=== PATIENT | female | born 1955 | race Caucasian/White ===

== ENCOUNTER 2016-08-16 21:23 | Emergency (ER) | payer SELFPAY ==
--- NOTE | 2016-08-16 21:31 | ED.PDOC ---
History of Present Illness - General Chief Complaint: Laceration Stated Complaint: laceration left hand Time Seen by Provider: 08/16/16 21:25 Source: patient Exam Limitations: no limitations - History of Present Illness Initial Comments: Rachana Fuchs 61 y/o female stated she accidentally injured left hand with her new paring knife at home. Occurred: just prior to arrival Pain - Upper Extremity: mild: Hand, left Method of Injury: incised Improving Factors: nothing Worsening Factors: movement Allergies/Adverse Reactions: Allergies Azithromycin [From Zithromax Z-Matias] Allergy (Unverified 02/24/13 11:40) Home Medications: Ambulatory Orders Lisinopril & Hydrochlorothiazi [Lisinopril/Hydrochlorothi] 1 tab PO DAILY Potassium Chloride [Potassium Chloride ER] 10 meq PO DAILY 02/24/13 Review of Systems - Review of Systems Constitutional: States: no symptoms reported EENTM: States: no symptoms reported Respiratory: States: no symptoms reported Cardiology: States: no symptoms reported Gastrointestinal/Abdominal: States: no symptoms reported Genitourinary: States: no symptoms reported Musculoskeletal: States: no symptoms reported Skin: States: see HPI Neurological: States: no symptoms reported Endocrine: States: no symptoms reported Hematologic/Lymphatic: States: no symptoms reported Past Medical History (General) - Patient Medical History Hx Congestive Heart Failure: No Hx Hypertension: Yes Hx Diabetes: No Surgical History: other - hysterectomy,ankle (orif) right - Social History Hx Tobacco Use: No Hx Alcohol Use: No Hx Substance Use: No Hx Depression: No Feels Threatened In Home Enviroment: No Feels Threatened In a Relationship: No Hx Physical Abuse: No Hx Emotional Abuse: No Hx Suspected Abuse: No - Activities of Daily Living Patient Lives Alone: No - family Family Medical History - Family History Grandparents Family History: Unknown Physical Exam - Physical Exam General Appearance: Alert, Anxious, No apparent distress Eyes, Ears, Nose, Throat Exam: PERRL/EOMI, normal ENT inspection, pharynx normal Neck: non-tender, full range of motion, supple Cardiovascular/Respiratory: regular rate, rhythm, no M/R/G, normal peripheral pulses Abdominal Exam: non-tender, no organomegaly Back Exam: normal inspection, no CVA tenderness Shoulder Exam: normal inspection, no evidence of injury Elbow/Forearm Exam: normal inspection, no evidence of injury Wrist Exam: normal inspection, no evidence of injury Hand Exam: laceration - 2 cm skin thenar area left thumb Neuro/Tendon: normal sensation, normal motor functions, normal tendon functions Mental Status: alert, oriented x 3 Skin Exam: normal color Progress - Results/Orders Results/Orders: Vital Signs - 8 hr 08/16/16 21:57 Temperature 98.1 F Pulse Rate [R 98 H Arm] Respiratory 16 Rate Blood Pressure 145/91 [Right Arm] O2 Sat by Pulse 97 Oximetry Procedures - Laceration/Wound Repair Left Hand Wound Length (cm): 2 Wound's Depth, Shape: superficial, irregular, flap Wound Explored: no foreign body removed Irrigated w/ Saline (cc's): 20 Betadine Prep?: No - hibiclens Anesthesia: 1% Lidocaine Volume Anesthetic (cc's): 5 Wound Repaired With: sutures Suture Size/Type: 5:0, nylon Number of Sutures: 2 Departure - Departure Clinical Impression: Laceration of left hand without complication, excluding fingers Qualifiers: Encounter type: initial encounter Qualified Code(s): S61.412A - Laceration without foreign body of left hand, initial encounter Time of Disposition: 22:22 Disposition: Discharge to Home or Self Care Condition: Good Instructions: DI for Laceration Repair Referrals: Alton Ocampo III, MD [Primary Care Provider] - 1-2 Weeks Home Medications: Ambulatory Orders Lisinopril & Hydrochlorothiazi [Lisinopril/Hydrochlorothi] 1 tab PO DAILY Potassium Chloride [Potassium Chloride ER] 10 meq PO DAILY 02/24/13 Additional Instructions: REMOVAL OF SUTURES 08/27/2016-[facility] ER
[2016-08-16] MEDS ORDERED: LIDOCAINE 1% 10 ML VIAL INJ ONE (21:41)
[2016-08-16] MEDS ORDERED: CHLORHEXIDINE GLUCONATE 4 % 15 ML UD TOP ONE (21:42)
[2016-08-16] MEDS ORDERED: NEOMYCIN-BACITRACIN-POLYMYXIN 0.9 GM UD TOP ONE (21:58)
[2016-08-16 22:06] VITALS: BP 145/91; TEMP 98.1; O2SAT 97
[2016-08-16] MEDS ORDERED: TETANUS,DIPHTHERIA,PERTUSSIS 1 EA SYG IM ONE (22:19)
[2016-08-16] MEDS ORDERED: HYDROCOD/APAP 5/325 (ER DISP) #3 TAB PO ONE (22:20)
== END 2016-08-16 22:45 | disposition home or self-care (01) ==
LOC: ER 21:23
DX: S61.412A Laceration without foreign body of left hand, initial encounter (principal); I10 Essential (primary) hypertension; Z23 Encounter for immunization; W26.0XXA Contact with knife, initial encounter; Y92.009 Unspecified place in unspecified non-institutional (private) residence as the place of occurrence of the external cause; Z79.899 Other long term (current) drug therapy

== ENCOUNTER 2018-02-25 17:57 | Emergency (ER) | payer SELFPAY ==
[2018-02-25] MEDS ORDERED: ONDANSETRON INJ 4 MG/2 ML VIAL IV ONE (18:36)
[2018-02-25] MEDS ORDERED: SODIUM CHLORIDE 0.9% 1000ML 1,000 ML IVS ONE ×2 (19:23→20:37)
[2018-02-25] MEDS ORDERED: KCL 20MEQ/WATER FOR INJ 100ML 20 MEQ in PREMIX BAG 1 BAG IVPB ONE (19:29)
[2018-02-25] MEDS ORDERED: KCL 20MEQ/WATER FOR INJ 100ML 100 ML IVPB ONE (19:31)
--- NOTE | 2018-02-25 19:34 | ED.PDOC ---
History of Present Illness - General Chief Complaint: GI Problem Stated Complaint: n/v/d Time Seen by Provider: 02/25/18 18:35 Source: patient Exam Limitations: no limitations - History of Present Illness Initial Comments: Patient presents with N/V/D since 7:30 this morning. The diarrhea is non- bloody. She denies abominal pain. No recent travel. Her just recovered from similar symptoms. S/P appendectomy/hysterectomy. No other complaints. Timing/Duration: other - 12 hours Severity: moderate Improving Factors: nothing, eating Associated Symptoms: other - as in HPI Allergies/Adverse Reactions: Allergies Azithromycin [From Zithromax Z-Matias] Allergy (Unverified 02/24/13 11:40) Home Medications: Ambulatory Orders Lisinopril & Hydrochlorothiazi [Lisinopril/Hydrochlorothi] 1 tab PO DAILY 02/24/13 Potassium Chloride [Potassium Chloride ER] 10 meq PO DAILY 02/24/13 Diphenoxylate/Atropine [Lomotil Tab] 2.5 mg PO Q6H PRN 02/25/18 Omeprazole Magnesium [Prilosec Otc] 20 mg PO DAILY 02/25/18 Ondansetron [Zofran Odt] 4 mg PO Q4HR PRN #10 tab 02/25/18 Promethazine HCl 25 mg PO Q6H PRN 02/25/18 Review of Systems - Review of Systems Constitutional: States: no symptoms reported EENTM: States: no symptoms reported Respiratory: States: no symptoms reported Cardiology: States: no symptoms reported Gastrointestinal/Abdominal: States: see HPI Genitourinary: States: no symptoms reported Musculoskeletal: States: no symptoms reported Skin: States: no symptoms reported Neurological: States: no symptoms reported Endocrine: States: no symptoms reported Hematologic/Lymphatic: States: no symptoms reported Past Medical History (General) - Patient Medical History Hx Congestive Heart Failure: No Hx Hypertension: Yes Hx Diabetes: No Hx Gastroesophageal Reflux: Yes Hx Cancer: No Hx Hepatitis C: No Surgical History: Hysterectomy, other - Vaccination History Hx Tetanus, Diphtheria Vaccination: No Hx Influenza Vaccination: No Hx Pneumococcal Vaccination: No - Social History Hx Tobacco Use: No Hx Chewing Tobacco Use: No Hx Alcohol Use: No Hx Substance Use: No Hx Substance Use Treatment: No Hx Depression: No Hx Physical Abuse: No Hx Emotional Abuse: No Hx Suspected Abuse: No - Female History Patient : No Family Medical History - Family History Grandparents Family History: Unknown Physical Exam - Physical Exam General Appearance: Alert Eye Exam: bilateral normal Ears, Nose, Throat: hearing grossly normal, normal ENT inspection Neck: non-tender, full range of motion, supple Respiratory: lungs clear, normal breath sounds Cardiovascular/Chest: normal peripheral pulses, regular rate, rhythm, no edema Gastrointestinal/Abdominal: normal bowel sounds, non tender, soft Back Exam: normal inspection, no CVA tenderness Extremity: normal range of motion, non-tender, normal inspection Neurologic: no motor/sensory deficits, alert, normal mood/affect, oriented x 3 Skin Exam: normal color Lymphatic: no adenopathy Progress - Progress Progress: 02/25/18 22:30 Laboratory Tests 02/25/18 02/25/18 02/25/18 18:46 18:46 18:46 WBC 13.2 H RBC 5.48 H Hgb 16.5 H Hct 49.1 H MCV 89.6 MCH 30.1 MCHC 33.6 RDW 13.4 Plt Count 340 MPV 9.5 Absolute Neuts (auto) 12.30 H Absolute Lymphs (auto) 0.50 L Absolute Monos (auto) 0.30 Absolute Eos (auto) 0.00 Absolute Basos (auto) 0.00 Neutrophils % 93.4 H Lymphocytes % 3.7 L Monocytes % 2.6 Eosinophils % 0.0 L Basophils % 0.3 Sodium 140 Potassium 3.0 L Chloride 102 Carbon Dioxide 24 Anion Gap 17.0 BUN 18 Creatinine 0.87 BUN/Creatinine Ratio 20.7 H Random Glucose 133 H Serum Osmolality 283.2 Calcium 9.9 Total Bilirubin 1.3 H AST 25 ALT 27 Alkaline Phosphatase 116 Serum Total Protein 9.2 H Albumin 4.8 Globulin 4.4 H Albumin/Globulin Ratio 1.1 Lipase 28 Urine Color Urine Appearance Urine pH Ur Specific Reading Urine Protein Urine Glucose (UA) Urine Ketones Urine Blood Urine Nitrite Urine Bilirubin Urine Urobilinogen Ur Leukocyte Esterase Urine RBC Urine WBC Ur Epithelial Cells Urine Bacteria Urine Yeast 02/25/18 21:24 WBC RBC Hgb Hct MCV MCH MCHC RDW Plt Count MPV Absolute Neuts (auto) Absolute Lymphs (auto) Absolute Monos (auto) Absolute Eos (auto) Absolute Basos (auto) Neutrophils % Lymphocytes % Monocytes % Eosinophils % Basophils % Sodium Potassium Chloride Carbon Dioxide Anion Gap BUN Creatinine BUN/Creatinine Ratio Random Glucose Serum Osmolality Calcium Total Bilirubin AST ALT Alkaline Phosphatase Serum Total Protein Albumin Globulin Albumin/Globulin Ratio Lipase Urine Color Yellow Urine Appearance Cloudy Urine pH 5.5 Ur Specific Reading >= 1.030 Urine Protein 30 Urine Glucose (UA) Negative Urine Ketones 40 H Urine Blood Moderate H Urine Nitrite Negative Urine Bilirubin Small H Urine Urobilinogen 0.2 Ur Leukocyte Esterase Negative Urine RBC 1-3 Urine WBC 10-20 H Ur Epithelial Cells 3-5 Urine Bacteria 2+ H Urine Yeast 1+ H Patient is dehydrated from acute gastroenteritis. She received Zofran 4 mg IV x one with good improvement of her nausea. She received NS one liter IV bolus x two and potassium chloride 20 meq IV x one. She was discharge with RX for Zofran. Care instructions given. E.R. warnings given. Questions were elicited and answered. The patient voiced understanding and agreement with the plan. Departure - Departure Clinical Impression: Gastroenteritis Disposition: Discharge to Home or Self Care Condition: Good Departure Forms: ED Discharge - Pt. Copy, Patient Portal Self Enrollment Instructions: DI for Diarrhea and Traveler's Diarrhea -- Adult, Viral Gastroenteritis, Adult (DC) Diet: other - increase oral fluids Activity: increase activity as tolerated Referrals: Alton Ocampo III, MD [Primary Care Provider] - 1-2 Weeks Prescriptions: Ondansetron [Zofran Odt] 4 mg PO Q4HR PRN #10 tab PRN Reason: Nausea Home Medications: Ambulatory Orders Lisinopril & Hydrochlorothiazi [Lisinopril/Hydrochlorothi] 1 tab PO DAILY 02/24/13 Potassium Chloride [Potassium Chloride ER] 10 meq PO DAILY 02/24/13 Diphenoxylate/Atropine [Lomotil Tab] 2.5 mg PO Q6H PRN 02/25/18 Omeprazole Magnesium [Prilosec Otc] 20 mg PO DAILY 02/25/18 Ondansetron [Zofran Odt] 4 mg PO Q4HR PRN #10 tab 02/25/18 Promethazine HCl 25 mg PO Q6H PRN 02/25/18 Additional Instructions: Increase oral fluids. Take prescription as directed for nausea. You may try Immodium A-D if diarrhea hasn't resolved in the next 24 hours. Return to the E.R. for temperature above 100.4 or if symptoms do not resolve in 48 hours.
[2018-02-25] MEDS ORDERED: ONDANSETRON ODT (ER DISP) 8 MG TAB PO ONE (22:32)
[2018-02-25 23:01] VITALS: BP 128/72; TEMP 100; O2SAT 94
== END 2018-02-25 23:00 | disposition home or self-care (01) ==
LOC: ER 17:57
DX: K52.9 Noninfective gastroenteritis and colitis, unspecified (principal); K21.9 Gastro-esophageal reflux disease without esophagitis; I10 Essential (primary) hypertension; Z88.1 Allergy status to other antibiotic agents; Z79.899 Other long term (current) drug therapy
CPT/HCPCS: 36415; 80053; 81001; 83690; 85025; 87086; J2405; J3480; J7030

== ENCOUNTER → 2018-07-06 | Outpatient (CLI) | payer MEDICARE | LOC: GMAL 10:38 | PROVIDERS: ATTEND Family Medicine | DX: D51.3 Other dietary vitamin B12 deficiency anemia (principal); R53.81 Other malaise; E55.9 Vitamin D deficiency, unspecified; I10 Essential (primary) hypertension; Z79.899 Other long term (current) drug therapy ==

== ENCOUNTER → 2018-10-06 | Outpatient (CLI) | payer MEDICARE | LOC: LAB.O 14:25 | PROVIDERS: ATTEND Nurse Practitioner Family | DX: R19.7 Diarrhea, unspecified (principal) ==

== ENCOUNTER 2018-10-23 10:20 | Emergency (ER) | payer MEDICARE ==
[2018-10-23 12:41] VITALS: BP 141/86; TEMP 97.9; O2SAT 97
== END 2018-10-23 12:35 | disposition home or self-care (01) ==
LOC: ER 10:20
DX: R19.7 Diarrhea, unspecified (principal); R11.2 Nausea with vomiting, unspecified; R10.9 Unspecified abdominal pain; I10 Essential (primary) hypertension; K21.9 Gastro-esophageal reflux disease without esophagitis; Z79.899 Other long term (current) drug therapy; Z88.1 Allergy status to other antibiotic agents
CPT/HCPCS: 36415; 80048; 80076; 82550; 82553; 84484; 85025; 85610; 85730; J0780; J2270; J7030

== ENCOUNTER 2019-05-18 19:21 | Emergency (ER) | payer MEDICARE ==
--- NOTE | 2019-05-18 20:21 | RAD ---
3 VIEWS LEFT HAND RADIOGRAPHIC SERIES. INDICATIONS: Pain. Foreign body. COMPARISONS: No comparisons are available. FINDINGS: Linear metallic foreign body tip is just medial to the left fifth metacarpal phalangeal joint without underlying fracture or dislocation. Mild osteoarthritis in the first left carpometacarpal joint. The distal left radius and ulna are intact. No carpal bone osteonecrosis. IMPRESSION: Linear metallic foreign body is lodged in medial left hand soft tissue just adjacent to the left fifth metacarpal phalangeal joint. Underlying bones appear normal. Electronically signed by: Sukh Ramos MD 05/18/2019 8:20 PM CDT
[2019-05-18] MEDS ORDERED: CLINDAMYCIN IV 600MG 600 MG in PREMIX BAG 1 BAG IVPB ONE (20:35)
[2019-05-18] MEDS ORDERED: ONDANSETRON INJ 4 MG/2 ML VIAL IV ONE (20:36)
[2019-05-18] MEDS ORDERED: fentaNYL CITRATE INJ 50 MCG/ML 2 ML AMP IV ONE (20:36)
[2019-05-18] MEDS ORDERED: CLINDAMYCIN IV 600MG 50 ML IVPB ONE (20:38)
--- NOTE | 2019-05-18 21:21 | ED.PDOC ---
History of Present Illness - General Chief Complaint: Skin/Abrasion/Tear Stated Complaint: wire in left hand Time Seen by Provider: 05/18/19 19:36 Source: patient, RN notes reviewed, Vital Signs reviewed, family - Exam Limitations: no limitations - History of Present Illness Initial Comments: Patient is a 63-year-old white female who was at home when her started up the mower and a piece of baling wire was picked up and thrown by the mower and hit her in her left hand. This occurred just prior to arrival. Patient complains of left hand pain. It is stinging/throbbing in nature. It is of moderate intensity. There is no radiation. She denies any dizziness, headache, blurry vision, chest pain, shortness of breath, nausea, vomiting, diarrhea, paresthesias. Patient's only complaint is her left hand pain and difficulty moving her fingers due to the pain. Occurred: just prior to arrival Severity: moderate Pain Location: upper extremity - Left medial hand. Method of Injury: direct blow Improving Factors: nothing Worsening Factors: movement Loss of Consciousness: no loss of consciousness Associated Symptoms (Fall): denies symptoms Allergies/Adverse Reactions: Allergies Azithromycin [From Zithromax Z-Matias] Allergy (Verified 05/18/19 22:00) Other Causes an elevation of liver enzymes Home Medications: Ambulatory Orders Lisinopril & Hydrochlorothiazi [Lisinopril/Hydrochlorothi] 1 tab PO DAILY 02/24/13 Potassium Chloride [Potassium Chloride ER] 10 meq PO DAILY 02/24/13 Diphenoxylate/Atropine [Lomotil Tab] 2.5 mg PO Q6H PRN 02/25/18 Omeprazole Magnesium [Prilosec Otc] 20 mg PO DAILY 02/25/18 Ondansetron [Zofran Odt] 4 mg PO Q4HR PRN #10 tab 02/25/18 Promethazine HCl 25 mg PO Q6H PRN 02/25/18 Promethazine W/Codeine Syr [Phenergan With Codeine Syrup] 10 ml PO TID PRN #120 ml 10/23/18 Clindamycin HCl 300 mg PO QID #28 cap 05/18/19 Review of Systems - Review of Systems Constitutional: States: no symptoms reported, see HPI. Denies: chills, fever, malaise, weakness EENTM: States: no symptoms reported. Denies: blurred vision, double vision Respiratory: States: no symptoms reported. Denies: orthopnea, short of breath, wheezing Cardiology: States: no symptoms reported. Denies: chest pain, palpitations, syncope Gastrointestinal/Abdominal: States: no symptoms reported. Denies: abdominal pain, diarrhea, nausea, vomiting Genitourinary: States: no symptoms reported Musculoskeletal: States: see HPI, other - Patient complains of left hand pain. Skin: States: no symptoms reported. Denies: change in color, rash Neurological: States: no symptoms reported. Denies: headache, numbness, paresthesia, tingling Endocrine: States: no symptoms reported Hematologic/Lymphatic: States: no symptoms reported All other Systems: Reviewed and Negative Past Medical History (General) - Patient Medical History Hx Stroke: No Hx Congestive Heart Failure: No Hx Hypertension: Yes Hx Diabetes: No Hx Gastroesophageal Reflux: Yes Hx Cancer: No Hx Hepatitis C: No - Vaccination History Hx Tetanus, Diphtheria Vaccination: Yes Hx Influenza Vaccination: No Hx Pneumococcal Vaccination: No - Social History Hx Tobacco Use: No Hx Chewing Tobacco Use: No Hx Alcohol Use: No Hx Substance Use: No Hx Substance Use Treatment: No Hx Depression: No Hx Physical Abuse: No Hx Emotional Abuse: No Hx Suspected Abuse: No - Female History Patient : No Family Medical History - Family History Grandparents Family History: Unknown Hx Family Hypertension: Yes - multiple family members Mother Living Status: Hx Family Congestive Heart Failure: Yes Hx Family Hypertension: Yes Progress - Progress Progress: Differential diagnosis: Left hand fracture, impaled foreign body, left hand tendon injury, left hand muscle tear among others. 05/18/19 22:08 Foreign body removed from patient's hand. IV antibiotics and pain medicines given. Plan on discharge with a prescription for antibiotics and a few pain pills. Patient to follow-up with Dr. olson, orthopedics for further evaluation and treatment. I discussed this plan of care with the patient and her and they voiced understanding and agreement. They understand the importance of immediate return should the hand began to swell, pain increases or does not resolve or there is redness or drainage from the wound. Jermaine Parsons M.D. #[id number] - Results/Orders Results/Orders: 3 VIEWS LEFT HAND RADIOGRAPHIC SERIES. INDICATIONS: Pain. Foreign body. COMPARISONS: No comparisons are available. FINDINGS: Linear metallic foreign body tip is just medial to the left fifth metacarpal phalangeal joint without underlying fracture or dislocation. Mild osteoarthritis in the first left carpometacarpal joint. The distal left radius and ulna are intact. No carpal bone osteonecrosis. IMPRESSION: Linear metallic foreign body is lodged in medial left hand soft tissue just adjacent to the left fifth metacarpal phalangeal joint. Underlying bones appear normal. Electronically signed by: Sukh Ramos MD 05/18/2019 8:20 PM CDT Departure - Departure Clinical Impression: Need for prophylactic vaccination against diphtheria, tetanus, acellular pertussis, poliovirus, and hepatitis B virus Foreign body of hand, left Qualifiers: Encounter type: initial encounter Qualified Code(s): S60.552A - Superficial foreign body of left hand, initial encounter Puncture wound of hand with foreign body Qualifiers: Encounter type: initial encounter Laterality: left Qualified Code(s): S61.442A - Puncture wound with foreign body of left hand, initial encounter Time of Disposition: 22:12 Disposition: Discharge to Home or Self Care Condition: Good Departure Forms: ED Discharge - Pt. Copy, Patient Portal Self Enrollment Instructions: Wound Care (DC), Foreign Body in Skin (DC) Diet: resume usual diet Activity: increase activity as tolerated, no pushing/pulling with affected limb Referrals: Aayush Olson MD [Active Staff] - 1-2 Days Alton Ocampo III, MD [Primary Care Provider] - 1-5 Days Prescriptions: Clindamycin HCl 300 mg PO QID #28 cap Home Medications: Ambulatory Orders Lisinopril & Hydrochlorothiazi [Lisinopril/Hydrochlorothi] 1 tab PO DAILY 02/24/13 Potassium Chloride [Potassium Chloride ER] 10 meq PO DAILY 02/24/13 Diphenoxylate/Atropine [Lomotil Tab] 2.5 mg PO Q6H PRN 02/25/18 Omeprazole Magnesium [Prilosec Otc] 20 mg PO DAILY 02/25/18 Ondansetron [Zofran Odt] 4 mg PO Q4HR PRN #10 tab 02/25/18 Promethazine HCl 25 mg PO Q6H PRN 02/25/18 Promethazine W/Codeine Syr [Phenergan With Codeine Syrup] 10 ml PO TID PRN #120 ml 10/23/18 Clindamycin HCl 300 mg PO QID #28 cap 05/18/19
[2019-05-18] MEDS ORDERED: traMADol HCL 50 MG (ER DISP) # 6 TABS PO ONE (22:15)
[2019-05-18 22:27] VITALS: BP 145/58; TEMP 97.5; O2SAT 95
== END 2019-05-18 22:27 | disposition home or self-care (01) ==
LOC: ER 19:21
DX: S61.442A Puncture wound with foreign body of left hand, initial encounter (principal); K21.9 Gastro-esophageal reflux disease without esophagitis; I10 Essential (primary) hypertension; W45.8XXA Other foreign body or object entering through skin, initial encounter; Y93.H2 Activity, gardening and landscaping; Y92.9 Unspecified place or not applicable; Z79.899 Other long term (current) drug therapy; Z88.1 Allergy status to other antibiotic agents
CPT/HCPCS: 73130; J2405; J3010; J3490

== ENCOUNTER → 2019-10-25 | Outpatient (CLI) | payer MEDICARE | LOC: GMAL 10:35 | PROVIDERS: ATTEND Family Medicine | DX: D51.3 Other dietary vitamin B12 deficiency anemia (principal); D50.8 Other iron deficiency anemias; E55.9 Vitamin D deficiency, unspecified; I10 Essential (primary) hypertension; R53.81 Other malaise; Z79.899 Other long term (current) drug therapy ==